=== PATIENT | male | born 1975 | race Caucasian/White ===

== ENCOUNTER 2022-10-20 10:03 | Outpatient (CLI) | payer BC | END 2022-10-20 10:04 | disposition home or self-care (01) | LOC: MRI 10:03 | PROVIDERS: ATTEND Orthopaedic Surgery | DX: M23.91 Unspecified internal derangement of right knee (principal); S83.241A Other tear of medial meniscus, current injury, right knee, initial encounter; M22.2X1 Patellofemoral disorders, right knee ==